=== PATIENT | female | born 1975 | race Caucasian/White ===

== ENCOUNTER 2016-09-26 19:25 | Emergency (ER) | payer MEDICARE, OTHER ==
[~2016-09-26 19:25] MED LIST: ALPRAZOLAM; AMOXICILLIN875 MG PO; BENZONATATE PO; DAILY VALUE1 EACH PO; DELTASONE20 MG PO; DIFLUCAN100 MG PO; ERYTHROMYC3.5 GM OPT OD; FLONASE 0.05% N16 G1; FLONASE 0.05% N16 G1 INH; HYDROCODON-ACE1 EAC5 PO; HYDROMET SYRUP480 ML PO; IBUPROFEN800 MG PO; LAMICTAL PO; LOMOTIL TABLET1 TAB PO; LOTRONEX1 MG; MOTRIN600 M1 PO; MOTRIN600 M2 PO; NEURONTIN600 MG PO; NO MEDICATIONS; PAMINE PO; PHENERGAN DM1 ML PO; PRENATAL VITAMI1 TA3; PROMETHAZINE D118 ML PO; PROMETRIUM; PSEUDOEPHEDRINE30 M2 PO; TAMIFLU75 M1 PO; ULTRAM PO; VOLTAREN75 MG PO; ZOFRAN PO; ZYRTEC; ZYRTEC10 M4 PO; [UNRECOGNIZED DRUG - OTHER]
== END 2016-09-26 19:44 | disposition home or self-care (01) ==
LOC: SED 19:25
DX: K02.9 Dental caries, unspecified (principal); F31.9 Bipolar disorder, unspecified; Z90.49 Acquired absence of other specified parts of digestive tract
CPT/HCPCS: 99282

== ENCOUNTER 2016-10-15 13:03 | Emergency (ER) | payer MEDICARE, OTHER | END 2016-10-15 13:39 | disposition home or self-care (01) | LOC: SED 13:03 | DX: J06.9 Acute upper respiratory infection, unspecified (principal); F31.9 Bipolar disorder, unspecified; Z98.890 Other specified postprocedural states; Z90.49 Acquired absence of other specified parts of digestive tract | CPT/HCPCS: 99282 ==